=== PATIENT | male | born 1965 | race Caucasian/White ===

== ENCOUNTER → 2022-09-30 | Outpatient (REF) | payer OTHER ==
[~2022-09-30] MED LIST: COLA100C2; KEFL500C; No Historical Meds; PERC5TAB8; PREG50CA; SILVADENE
[2022-09-30 13:48] LABS: APPEARANCE, URINE MANUAL CLEAR (CLEAR); COLOR, URINE MANUAL YELLOW (YELLOW); GLUCOSE, URINE (UA) MANUAL NEGATIVE (NEGATIVE); PROTEIN, URINE MANUAL NEGATIVE (NEGATIVE)
[2022-09-30 13:49] LABS: BILIRUBIN, URINE MANUAL 1+ (NEGATIVE); BLOOD URINE MANUAL POSITIVE (NEGATIVE); KETONE, URINE MANUAL NEGATIVE (NEGATIVE); LEUKOCYTE ESTERASE, URINE MAN NEGATIVE (NEGATIVE); NITRITE, URINE MANUAL NEGATIVE (NEGATIVE); UROBILINOGEN, URINE MANUAL 1 MG mg/dl (NORMAL)
[2022-09-30 14:01] LABS: BACTERIA, URINE SMALL AMOUNT; HYALINE CAST, URINE NONE SEEN /lpf (0-1); RBC, URINE 0-1 /hpf (0-3); SQUAMOUS EPITHELIAL CELL URINE NONE SEEN /hpf (SMALL AMT); WBC, URINE NONE SEEN /hpf (0-3)
== END ==
LOC: M SMT 13:13
PROVIDERS: ATTEND Nurse Practitioner Women's Health
DX: Z01.818 Encounter for other preprocedural examination (principal); N13.2 Hydronephrosis with renal and ureteral calculous obstruction

== ENCOUNTER → 2022-10-07 | Outpatient (CLI) | payer OTHER, SELFPAY ==
[~2022-10-07] MED LIST changes: +BACT800T5 PO; +OXYB5TAB10 PO; +PYRI1TAB5 PO
== END ==
LOC: M LABSMTC 09:38
PROVIDERS: ATTEND Anesthesiology
DX: Z01.812 Encounter for preprocedural laboratory examination (principal); Z20.822 Contact with and (suspected) exposure to COVID-19

== ENCOUNTER 2022-10-10 06:03 | Day surgery (SDC) | payer OTHER ==
[~2022-10-10] VITALS: Ht 175.3 cm; Wt 70.8 kg
[~2022-10-10 06:03] MED LIST changes: -BACT800T5 PO; -OXYB5TAB10 PO; -PYRI1TAB5 PO; +ceFAZolin SOD 2 GM in IV 1 EA IV ONE
[2022-10-10] MEDS ORDERED: LR 1,000 ML IV SCH ×2 (06:55→08:35)
[2022-10-10] MEDS ORDERED: ROCURONIUM BROMIDE 50 MG/5 ML VIAL As Ordered ONE (07:19)
[2022-10-10] MEDS ORDERED: propofoL 200 MG/20 ML VIAL As Ordered ONE (07:19)
[2022-10-10] MEDS ORDERED: MIDAZOLAM INJ 2MG/2ML VIAL (J2250 PER 1MG) As Ordered ONE (07:19)
[2022-10-10] MEDS ORDERED: ONDANSETRON 4MG 2ML VIAL As Ordered ONE (07:19)
[2022-10-10] MEDS ORDERED: fentaNYL 100 MCG/2 ML INJECTION As Ordered ONE (07:20)
[2022-10-10] MEDS ORDERED: LIDOCAINE 2% INJ 100 MG/5 ML SYRINGE As Ordered ONE (07:20)
[2022-10-10] MEDS ORDERED: ISOVUE-300 61% 50ML VIAL As Ordered ONE (07:52)
[2022-10-10] MEDS ORDERED: SUGAMMADEX SODIUM 500 MG/5 ML VIAL (BRIDION) As Ordered ONE (08:25)
[2022-10-10] MEDS ORDERED: OXYB5TAB10 PO (08:33)
[2022-10-10] MEDS ORDERED: BACT800T5 PO (08:33)
[2022-10-10] MEDS ORDERED: PYRI1TAB5 PO (08:33)
[2022-10-10] MEDS ORDERED: ONDANSETRON 4MG 2ML VIAL IV PRN (08:35)
[2022-10-10] MEDS ORDERED: fentaNYL 100 MCG/2 ML INJECTION IV PRN (08:35)
[2022-10-10] MEDS ORDERED: oxyCODONE 5MG TAB PO PRN (08:35)
[2022-10-10] MEDS ORDERED: MEPERIDINE INJ 25 MG/ML VIAL (J2175) IV PRN (08:35)
[2022-10-10] MEDS ORDERED: MORPHINE 2 MG/ML 1ML VIAL IV PRN (08:35)
[2022-10-10] MEDS ORDERED: METOCLOPRAMIDE INJ 10MG/2ML VIAL IV PRN (08:35)
[2022-10-10 09:20] VITALS: BP 122/83
[2022-10-16 15:10] LABS: Ca Ox Monohydrate 100 % (.); Size 5x5 mm (.)
== END 2022-10-10 09:39 | disposition home or self-care (01) ==
LOC: M SDC 06:03
PROVIDERS: ATTEND Urology
DX: N20.1 Calculus of ureter (principal)
CPT/HCPCS: 52356; 74420; 82365; C1769; C1894; C2617; J0690; J2250; J2405; J3010